=== PATIENT | male | born 1940 | race Caucasian/White ===

== ENCOUNTER → 2017-10-05 | Outpatient (CLI) | payer OTHER ==
[~2017-10-05] MED LIST: REGADENOSON 0.4 MG/5 ML PF SYG IVP SCH
== END | disposition home or self-care (01) ==
LOC: SHCH 10:07
PROVIDERS: ATTEND Internal Medicine Cardiovascular Disease
DX: I25.10 Atherosclerotic heart disease of native coronary artery without angina pectoris (principal)
CPT/HCPCS: 78452; 93017; 96374; A9500 ×2; J2785

== ENCOUNTER → 2018-06-03 | Outpatient (CLI) | payer OTHER | END | disposition home or self-care (01) | LOC: SHCH 07:58 | PROVIDERS: ATTEND Internal Medicine Cardiovascular Disease | DX: R55 Syncope and collapse (principal); R00.0 Tachycardia, unspecified | CPT/HCPCS: 78452; 93017; 96374; A9500 ×2; J2785 ==

== ENCOUNTER → 2018-06-10 | Outpatient (CLI) | payer OTHER | END | disposition home or self-care (01) | LOC: SHCH 07:46 | PROVIDERS: ATTEND Internal Medicine Cardiovascular Disease | DX: R55 Syncope and collapse (principal); R00.0 Tachycardia, unspecified | CPT/HCPCS: 93306 ==

== ENCOUNTER 2018-06-21 05:57 | Day surgery (SDC) | payer OTHER ==
[2018-06-19 08:44] VITALS: BP 140/68
[2018-06-19 08:44] LABS: BASOPHILS % (AUTO) 1.2 % (0.0-5.0); EOSINOPHILS % (AUTO) 2.2 % (0.0-8.0); HEMATOCRIT 34.2 % (42-54); MEAN CORPUSCULAR HEMOGLOBIN 21.9 pg (27.0-33.0); MEAN CORPUSCULAR HGB CONC 31.6 g/dL (32.0-36.0); MEAN CORPUSCULAR VOLUME 69.3 fL (79-99); MONOCYTES % (AUTO) 9.6 % (3.0-13.0); PLATELET COUNT (AUTO) 193 K/uL (130-400); RED BLOOD CELL COUNT(AUTO) 4.93 MIL/uL (4.50-6.20); RED CELL DISTRIBUTION WIDTH 15.9 % (11.0-15.5)
[2018-06-19 08:51] LABS: CREATININE 1.3 mg/dL (0.5-1.5); POTASSIUM 4.1 mmol/L (3.5-5.1)
[2018-06-19 08:53] LABS: APPEARANCE,URINE Clear (CLEAR); BILIRUBIN,URINE Negative (NEGATIVE); COLOR,URINE Yellow (YELLOW); GLUCOSE, URINE (UA) Negative (NEGATIVE); KETONES,URINE Negative (NEGATIVE); LEUKOCYTE ESTERASE ,URINE Negative (NEGATIVE); NITRATE,URINE Negative (NEGATIVE); OCCULT BLOOD,URINE Negative (NEGATIVE); PH,URINE 5.5 (5.0-8.0); PROTEIN,URINE Negative (NEGATIVE); UROBILINOGEN,URINE 0.2 mg/dL (0.2-1.0)
[2018-06-19 08:54] LABS: INR 1.01 (0.85-1.15); PARTIAL THROMBOPLASTIN TIME 28.2 SEC (26.3-35.5); PROTHROMBIN TIME 10.6 SEC (9.6-11.6)
--- NOTE | 2018-06-20 11:36 | NUR ---
ABNORMAL LABS REPORTED ABNORMAL LABS TO CHERIE AGUILERA, EFRA. CREATINE 1.3, BUN 25, HGB 10.8, HCT 34.2. NO NEW ORDERS.
[~2018-06-21] VITALS: Ht 188 cm; Wt 119.3 kg
[2018-06-21] VITALS (11 sets, daily range): BP systolic 117–161; BP diastolic 54–86
[~2018-06-21 05:57] MED LIST changes: +ACETAMINOPHEN 325 MG TAB PO PRN; +ASCO500T9 PO; +ASPI-555 PO; +CALC600T12 PO; +CARV6.25 PO; +FISH1CAP49 PO; +FOSI40TA5 PO; +GLUC1TAB21 PO; +HYDR12.54 PO; +ISOS30TA11 PO; -REGADENOSON 0.4 MG/5 ML PF SYG IVP SCH; +ROSU40 PO; +SODIUM CHLORIDE 0.9% 500ML 500 ML IV SCH; +TAMS0.4C32 PO; +UBID100C10 PO; +VITA400C19 PO
[2018-06-21] MEDS ORDERED: SODIUM CHLORIDE 0.9% 1000ML 1,000 ML IV ONE (06:54)
[2018-06-21] MEDS ORDERED: IOHEXOL-350 50ML VIAL IV ONE (10:04)
[2018-06-21] MEDS ORDERED: IOHEXOL 350 MG/ML 100ML INFUS..BTL IV ONE (10:04)
[2018-06-21] MEDS ORDERED: LIDOCAINE HCL-MPF 2% 10ML AMP IJ ONE (10:04)
[2018-06-21] MEDS ORDERED: HEPARIN SODIUM 1000UNIT/ML 10ML VIAL ONE (10:04)
--- NOTE | 2018-06-21 15:00 | NUR ---
PT DISCHARGED HOME. REPORTS TOLERATING FLUIDS, PT REFUSED SOLID FOOD DESPITE BEING OFFERED MULTIPLE TIMES, REPORTS THAT THEY WOULD RATHER WAIT TILL THEY GET HOME TO EAT, DENIES ANY NAUSEA, PAIN OR DIZZINESS. RIGHT GROIN CATH SITE REMAINS SOFT, DRY, CLEAN AND INTACT, NO EVIDENCE OF BLEEDING. PAIN INSTRUCTED IN ROUTINE AND EMERGENCY CARE OF GROIN SITE. SPOUSE AND PT REPORT UNDERSTANDING. NO FURTHER QUESTIONS AT THIS TIME.
== END 2018-06-21 15:00 | disposition home or self-care (01) ==
LOC: DAH 05:57
PROVIDERS: ATTEND Internal Medicine Cardiovascular Disease
DX: I25.10 Atherosclerotic heart disease of native coronary artery without angina pectoris (principal); Z95.5 Presence of coronary angioplasty implant and graft; R00.0 Tachycardia, unspecified; E78.5 Hyperlipidemia, unspecified; I10 Essential (primary) hypertension; I73.9 Peripheral vascular disease, unspecified; Z98.890 Other specified postprocedural states; Z79.899 Other long term (current) drug therapy; Z79.01 Long term (current) use of anticoagulants; Z82.49 Family history of ischemic heart disease and other diseases of the circulatory system; Z83.3 Family history of diabetes mellitus; Z68.32 Body mass index [BMI] 32.0-32.9, adult
CPT/HCPCS: 36415; 71045; 80048; 81003; 85025; 85610; 85730; 93005; 93458; A4606; C1760; C1894; J1644; J3490; J7030; Q9965; Q9967 ×2

== ENCOUNTER → 2020-02-05 | Outpatient (CLI) | payer OTHER ==
[~2020-02-05] MED LIST changes: -ACETAMINOPHEN 325 MG TAB PO PRN; +ASCO500T20 PO; -ASCO500T9 PO; -ASPI-555 PO; +ASPI-556 PO; -CALC600T12 PO; +CALC600T15 PO; -SODIUM CHLORIDE 0.9% 500ML 500 ML IV SCH
== END | disposition home or self-care (01) ==
LOC: SHCH 15:36
PROVIDERS: ATTEND Internal Medicine Cardiovascular Disease
DX: I08.1 Rheumatic disorders of both mitral and tricuspid valves (principal); I50.30 Unspecified diastolic (congestive) heart failure
CPT/HCPCS: 93306; 93356

== ENCOUNTER → 2020-02-20 | Outpatient (CLI) | payer OTHER ==
[~2020-02-20] MED LIST changes: +ASCO500C18 PO; +CA C1TAB95 PO; +DOCU-272 PO; +EZET10TA48 PO; +FURO20TA4 PO; +ISOS30TA6 PO; +METO200T49 PO; +REGADENOSON 0.4 MG/5 ML PF SYG IVP SCH; +RIVA20TA PO; +SACU1TAB7 PO; +TRAZ-185 PO; +VITA-164 PO
== END | disposition home or self-care (01) ==
LOC: SHCH 08:13
PROVIDERS: ATTEND Internal Medicine Cardiovascular Disease
DX: I21.19 ST elevation (STEMI) myocardial infarction involving other coronary artery of inferior wall (principal); I21.09 ST elevation (STEMI) myocardial infarction involving other coronary artery of anterior wall; I42.9 Cardiomyopathy, unspecified
CPT/HCPCS: 78452; 93017; A9500 ×2; J2785; 96374

== ENCOUNTER 2020-03-05 06:51 | Day surgery (SDC) | payer OTHER ==
[2020-03-02 14:55] LABS: BASOPHILS % (AUTO) 0.6 % (0.0-5.0); EOSINOPHILS % (AUTO) 1.4 % (0.0-8.0); HEMATOCRIT 41.5 % (42-54); LYMPHOCYTES % (AUTO) 23.6 % (21.0-51.0); MEAN CORPUSCULAR HEMOGLOBIN 21.4 pg (27.0-33.0); MEAN CORPUSCULAR HGB CONC 30.4 g/dL (32.0-36.0); MEAN CORPUSCULAR VOLUME 70.5 fL (79-99); MONOCYTES % (AUTO) 8.2 % (3.0-13.0); NEUTROPHILS % (AUTO) 65.9 % (40.0-77.0); PLATELET COUNT (AUTO) 213 K/uL (130-400); RED BLOOD CELL COUNT(AUTO) 5.89 MIL/uL (4.50-6.20); RED CELL DISTRIBUTION WIDTH 17.2 % (11.0-15.5)
[2020-03-02 15:09] LABS: CREATININE 1.1 mg/dL (0.5-1.5); POTASSIUM 4.8 mmol/L (3.5-5.1)
[2020-03-04 13:39] VITALS: BP 126/79
[~2020-03-05] VITALS: Ht 188 cm; Wt 112.9 kg
[2020-03-05] VITALS (17 sets, daily range): BP systolic 117–149; BP diastolic 68–90
[2020-03-05] MEDS: CEFTRIAXONE SODIUM 1 GM IVP SCH ×2 (05:00→08:40)
[~2020-03-05 06:51] MED LIST changes: -ASCO500C18 PO; -ASPI-556 PO; -CALC600T15 PO; -CARV6.25 PO; -FISH1CAP49 PO; -FOSI40TA5 PO; -HYDR12.54 PO; -ISOS30TA11 PO; -REGADENOSON 0.4 MG/5 ML PF SYG IVP SCH; -VITA400C19 PO
[2020-03-05] MEDS ORDERED: LACTATED RINGERS 1000ML 1,000 ML IV ONE (07:23)
[2020-03-05] MEDS ORDERED: DEXAMETHASONE SOD PHOSPHATE 10MG/ML 1ML VIAL ONE ×2 (07:28→07:31)
[2020-03-05] MEDS ORDERED: LIDOCAINE PF 2% 5ML ABBOJECT ONE (07:28)
[2020-03-05] MEDS ORDERED: MIDAZOLAM HCL 1 MG/ML 2ML VIAL ONE (07:28)
[2020-03-05] MEDS ORDERED: SUCCINYLCHOLINE 200MG/10ML SYR ONE (07:28)
[2020-03-05] MEDS ORDERED: PROPOFOL 10 MG/ML 20ML VIAL IV ONE (07:29)
[2020-03-05] MEDS ORDERED: GLYCOPYRROLATE 1 MG/5 ML SYRINGE ONE (07:29)
[2020-03-05] MEDS ORDERED: NEOSTIGMINE 5MG/5ML SYR IV ONE (07:29)
[2020-03-05] MEDS ORDERED: ONDANSETRON HCL 4 MG/2 ML VIAL ONE (07:29)
[2020-03-05] MEDS ORDERED: FENTANYL CITRATE PF 50 MCG/1 ML 2ML VIAL ONE ×2 (07:30→09:41)
[2020-03-05] MEDS ORDERED: EPHEDRINE SULFATE 50 MG/ML AMPULE ONE (07:34)
[2020-03-05] MEDS ORDERED: ALBUMIN (HUMAN) 5% 250 ML IV ONE (07:53)
[2020-03-05] MEDS ORDERED: KETAMINE 50MG/ML SYRINGE 50 MG/ML DISP.SYRIN IV ONE (07:54)
[2020-03-05] MEDS ORDERED: OPIUM/BELLADONNA ALKALOIDS 1 EACH SUPP.RECT RC ONE (09:19)
[2020-03-05] MEDS ORDERED: PHENAZOPYRIDINE HCL 200 MG TABLET ONE (12:04)
== END 2020-03-05 12:35 | disposition home or self-care (01) ==
LOC: DAH 06:51
PROVIDERS: ATTEND Urology
DX: N40.1 Benign prostatic hyperplasia with lower urinary tract symptoms (principal); R35.1 Nocturia; I10 Essential (primary) hypertension; I25.10 Atherosclerotic heart disease of native coronary artery without angina pectoris; I73.9 Peripheral vascular disease, unspecified; E78.5 Hyperlipidemia, unspecified; I48.0 Paroxysmal atrial fibrillation; Z95.5 Presence of coronary angioplasty implant and graft; Z79.01 Long term (current) use of anticoagulants; Z79.899 Other long term (current) drug therapy; Z20.828 Contact with and (suspected) exposure to other viral communicable diseases
CPT/HCPCS: 36415; 52648; 80048; 85025; 93005; A4215; A4221; A4222; A4223; A4340; A4354; A4358; A4663 ×2; A5113; A6260; C9803; J0330; J0696; J1100 ×2; J2001; J2250; J2405; J2704; J2710; J3010 ×2; J3490 ×3; J7030; J7120; P9045; U0003

== ENCOUNTER → 2020-05-05 | Outpatient (CLI) | payer OTHER | END | disposition home or self-care (01) | LOC: SHCH 08:22 | PROVIDERS: ATTEND Internal Medicine Cardiovascular Disease | DX: I08.1 Rheumatic disorders of both mitral and tricuspid valves (principal); I27.20 Pulmonary hypertension, unspecified | CPT/HCPCS: 93306; 93356 ==